=== PATIENT | female | born 1950 | race Two or more races ===

== ENCOUNTER 2019-12-22 13:09 | Emergency (ER) | payer OTHER, MEDICAID ==
[~2019-12-22] VITALS: Ht 152.4 cm; Wt 58.1 kg
[2019-12-22 13:21] VITALS: BP 127/75
== END 2019-12-22 14:42 | disposition home or self-care (01) ==
LOC: ER 13:09
DX: H00.021 Hordeolum internum right upper eyelid (principal)

== ENCOUNTER 2022-01-05 22:50 | Emergency (ER) | payer OTHER, MEDICAID ==
[~2022-01-05] VITALS: Ht 152.4 cm; Wt 54.4 kg
[2022-01-05 22:51] VITALS: BP 133/81
== END 2022-01-06 07:14 | disposition home or self-care (01) ==
LOC: ER 22:50
DX: S20.213A Contusion of bilateral front wall of thorax, initial encounter (principal); Z88.0 Allergy status to penicillin; X58.XXXA Exposure to other specified factors, initial encounter; Y93.89 Activity, other specified; Y92.89 Other specified places as the place of occurrence of the external cause; Y99.8 Other external cause status
CPT/HCPCS: 71111

== ENCOUNTER 2022-01-12 21:44 | Emergency (ER) | payer OTHER, MEDICAID ==
[~2022-01-12] VITALS: Ht 152.4 cm; Wt 54.4 kg
[2022-01-13] MEDS ORDERED: LIDOCAINE 5% TOPICAL PATCH TOP ONE (02:15)
[2022-01-13] MEDS ORDERED: LIDO5DIS21 TOP (06:48)
[2022-01-13 07:47] VITALS: BP 129/66
== END 2022-01-13 07:56 | disposition home or self-care (01) ==
LOC: ER 21:44
DX: S20.213A Contusion of bilateral front wall of thorax, initial encounter (principal); Z88.0 Allergy status to penicillin; X58.XXXA Exposure to other specified factors, initial encounter; Y93.89 Activity, other specified; Y92.89 Other specified places as the place of occurrence of the external cause; Y99.8 Other external cause status
CPT/HCPCS: 71250